=== PATIENT | male | born 1970 | race American Indian/Alaskan Native ===

== ENCOUNTER 2019-05-10 22:13 | Emergency (ER) | payer OTHER ==
--- NOTE | 2019-05-10 22:24 | Event Note ---
ED Screening Note Date of service: 05/10/19 Time: 22:20 ED Screening Note: This is a 49 y.o. M. that presents to the ER with sore throat for 2 days. Reports discomfort with swallowing. This initial assessment/diagnostic orders/clinical plan/treatment(s) is/are subject to change based on patients health status, clinical progression and re- assessment by fellow clinical providers in the ED. Further treatment and workup at subsequent clinical providers discretion. Patient/guardian urged not to elope from the ED as their condition may be serious if not clinically assessed and managed. Initial orders include: Rapid strep
--- NOTE | 2019-05-11 00:10 | Emergency Department Report ---
ED ENT HPI - General Chief complaint: Sore Throat Stated complaint: SORE THROAT Time Seen by Provider: 05/10/19 22:19 Source: patient Mode of arrival: Ambulatory Limitations: No Limitations - History of Present Illness Initial comments: Patient is a 49-year-old male who presents to the emergency room with complaints of a sore throat that began 2 weeks ago. He states it hurts to swallow. He denies any fever. He denies any sick contacts. He is tolerating his secretions without difficulty. 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 He denies any allergies to medications. He is a nonsmoker, occasional drinker, denies drug use. - Related Data Previous Rx's Medication Instructions Recorded Last Taken Type Famotidine [Pepcid] 20 mg PO BID #60 tablet 05/11/19 Unknown Rx Nystas/Diphen/Xyl Visc/Mylanta 15 ml MM QID #1 udc 05/11/19 Unknown Rx [Magic Mouthwash] Nystas/Diphen/Xyl Visc/Mylanta 15 ml MM QID #480 ml 05/11/19 Unknown Rx [Magic Mouthwash] Allergies Allergy/AdvReac Type Severity Reaction Status Date / Time shellfish derived Allergy Anaphylaxis Verified 09/22/16 14:04 ED Dental HPI - General Chief complaint: Sore Throat Stated complaint: SORE THROAT Time Seen by Provider: 05/10/19 22:19 Source: patient Mode of arrival: Ambulatory Limitations: No Limitations - Related Data Previous Rx's Medication Instructions Recorded Last Taken Type Famotidine [Pepcid] 20 mg PO BID #60 tablet 05/11/19 Unknown Rx Nystas/Diphen/Xyl Visc/Mylanta 15 ml MM QID #1 udc 05/11/19 Unknown Rx [Magic Mouthwash] Nystas/Diphen/Xyl Visc/Mylanta 15 ml MM QID #480 ml 05/11/19 Unknown Rx [Magic Mouthwash] Allergies Allergy/AdvReac Type Severity Reaction Status Date / Time shellfish derived Allergy Anaphylaxis Verified 09/22/16 14:04 ED Review of Systems ROS: Stated complaint: SORE THROAT Other details as noted in HPI Comment: All other systems reviewed and negative ED Past Medical Hx - Past Medical History Previous Medical History?: Yes Hx GERD: Yes Hx of Cancer: Yes (Tumor in nose) Additional medical history: Brain tumor in 2012 - Surgical History Past Surgical History?: Yes Additional Surgical History: Tumor removal 2011 - Social History Smoking Status: Never Smoker Substance Use Type: None - Medications Home Medications: Home Medications Medication Instructions Recorded Confirmed Last Taken Type Famotidine [Pepcid] 20 mg PO BID #60 tablet 05/11/19 Unknown Rx Nystas/Diphen/Xyl Visc/Mylanta 15 ml MM QID #1 udc 05/11/19 Unknown Rx [Magic Mouthwash] Nystas/Diphen/Xyl Visc/Mylanta 15 ml MM QID #480 ml 05/11/19 Unknown Rx [Magic Mouthwash] ED Physical Exam - General Limitations: No Limitations General appearance: alert, in no apparent distress - Head Head exam: Present: atraumatic, normocephalic - Eye Eye exam: Present: normal appearance, PERRL - ENT ENT exam: Present: other (posterior oropharynx with green fixated mucus and sm all white plaques, no tonsillar hypertrophy, no tonsillar exudates, uvula is midline, no uvular edema) - Respiratory Respiratory exam: Present: normal lung sounds bilaterally. Absent: respiratory distress, wheezes, rales, rhonchi, stridor, chest wall tenderness, accessory muscle use, decreased breath sounds, prolonged expiratory - Cardiovascular Cardiovascular Exam: Present: regular rate, normal rhythm, normal heart sounds. Absent: systolic murmur, diastolic murmur, rubs, gallop - Neurological Exam Neurological exam: Present: alert, oriented X3 - Psychiatric Psychiatric exam: Present: normal affect, normal mood - Skin Skin exam: Present: warm, dry, intact ED Course Vital Signs 05/10/19 05/11/19 22:18 00:33 Temperature 97.9 F 98.7 F Pulse Rate 69 57 L Respiratory 18 16 Rate Blood Pressure 123/72 Blood Pressure 118/78 [Left] O2 Sat by Pulse 92 100 Oximetry ED Medical Decision Making - Lab Data Lab Results 05/10/19 Range/Units Unknown Group A Strep Rapid Negative (Negative) Vital Signs 05/10/19 05/11/19 22:18 00:33 Temperature 97.9 F 98.7 F Pulse Rate 69 57 L Respiratory 18 16 Rate Blood Pressure 123/72 Blood Pressure 118/78 [Left] O2 Sat by Pulse 92 100 Oximetry - Medical Decision Making Patient is a 49-year-old male who presents to the emergency room with complaints of a sore throat that began 2 weeks ago. He states it hurts to swallow. He denies any fever. He denies any sick contacts. He is tolerating his secretions without difficulty. 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 He denies any allergies to medications. He is a nonsmoker, occasional drinker, denies drug use. on exam: posterior oropharynx with green fixated mucus and small white plaques, no tonsillar hypertrophy, no tonsillar exudates, uvula is midline, no uvular edema. rapid strep is negative. vitals are normal. pt is afebrile. will give pt magic mouthwash, advised to swish and spit. pt also requesting something for his acid reflux. will give pt pepcid. discussed with pt the importance of following up with a PCP in the next 2-3 days due to these new findings in his oropharynx and his history of nasal CA. discussed with pt could be fungal or could be related to his prior cancer diagnosis and stressed the importance of follow up. pt agreeable with plan. return to the emergency room for any new or worsening symptoms. - Differential Diagnosis strep throat, pharyngitis, oral candidiasis, cancer Critical care attestation.: If time is entered above; I have spent that time in minutes in the direct care of this critically ill patient, excluding procedure time. ED Disposition Clinical Impression: Pain in throat Disposition: DC-01 TO HOME OR SELFCARE Is pt being admited?: No Does the pt Need Aspirin: No Condition: Stable Instructions: Pharyngitis (ED) Additional Instructions: please take medication as prescribed. it is very important you follow up with a primary care doctor in the next 3 days, the findings in your throat could be related to your acid reflux, a fungal infection, or could be related to your previous cancer diagnosis. return to the emergency room for any new or worsening symptoms. Prescriptions: Nystas/Diphen/Xyl Visc/Mylanta [Magic Mouthwash] 15 ml MM QID #1 udc Nystas/Diphen/Xyl Visc/Mylanta [Magic Mouthwash] 15 ml MM QID #480 ml Famotidine [Pepcid] 20 mg PO BID #60 tablet Referrals: CHARLES GARCIA MD [Primary Care Provider] - 2-3 Days [facility] [Outside] - 2-3 Days [facility] [Outside] - 2-3 Days Time of Disposition: 00:11 Print Language: MARSHALLESE
[2019-05-11 00:34] VITALS: BP 118/78
== END 2019-05-11 00:33 | disposition home or self-care (01) ==
LOC: ED 05-11 00:03
DX: R07.0 Pain in throat (principal); K21.9 Gastro-esophageal reflux disease without esophagitis; Z91.013 Allergy to seafood
CPT/HCPCS: 87116; 87430; 99283

== ENCOUNTER 2020-02-27 23:33 | Emergency (ER) | payer SELFPAY ==
[2020-02-27] MEDS ORDERED: SODIUM CHLORIDE 0.9% 1000 ML 1,000 ML IV ONE (23:53)
[2020-02-27] MEDS ORDERED: LIDOCAINE VISCOUS 2% 15 ML ORAL LIQD PO ONE (23:55)
[2020-02-27] MEDS ORDERED: ALUM-MAG HYDROXIDE-SIMETHICONE 200-200-20MG/5ML ORAL LIQD 30 ML PO ONE (23:55)
[2020-02-28 00:11] LABS: Bacteria,Urine 1+ /HPF (Negative); Bilirubin,Urine NEG (Negative); Blood,Urine NEG (Negative); Color,Urine Straw (Yellow); Protein,Urine <15 mg/dL mg/dL (Negative); Urobilinogen,Urine < 2.0 mg/dL (<2.0); WBC,Urine < 1.0 /HPF (0.0-6.0)
--- NOTE | 2020-02-28 00:50 | XRay Report ---
CHEST 2 VIEWS INDICATION / CLINICAL INFORMATION: Chest Pain. COMPARISON: None available. FINDINGS: SUPPORT DEVICES: None. HEART / MEDIASTINUM: No significant abnormality. LUNGS / PLEURA: No significant pulmonary or pleural abnormality. No pneumothorax. ADDITIONAL FINDINGS: No significant additional findings. IMPRESSION: 1. No acute findings. No change. Signer Name: Heidi Neville MD Signed: 02/28/2020 12:46 AM Workstation Name: [id number]
--- NOTE | 2020-02-28 00:59 | Emergency Department Report ---
ED Dizziness HPI - General Chief Complaint: Dizziness Stated Complaint: LIGHTHEADED Time Seen by Provider: 02/27/20 23:52 Source: patient Mode of arrival: Ambulatory Limitations: No Limitations - History of Present Illness Initial Comments: Ms. Cid is a 50-year-old -[place] male with a history of GERD, brain tumor in 2011, Who presents for dizziness intermittent for 2 days. There is no fever or chills. There is no nausea vomiting. Patient is alert oriented x3 patient is ambulatory with steady gait with no acute distress. He denies cough or shortness of breath. Symptoms are exacerbated by nothing. Symptoms are relieved by nothing tried., Patient states he stopped taking his GERD medicine. Denies any falls injuries or trauma. There is no decrease or loss of vision. There is no headache. There is no chest pain. MD Complaint: dizziness Onset/Timin -: days(s) Timing: gradual onset Description: sense of movement History of Same: Yes History of Trauma: No Severity: mild Improves With: nothing Worsens With: nothing Associated Symptoms: denies: ataxia, chest pain, confusion, cough, diaphoresis, fever/chills, malaise, shortness of breath, weakness - Related Data Previous Rx's Medication Instructions Recorded Last Taken Type Famotidine [Pepcid] 20 mg PO BID #60 tablet 05/11/19 Unknown Rx Nystas/Diphen/Xyl Visc/Mylanta 15 ml MM QID #1 udc 05/11/19 Unknown Rx [Magic Mouthwash] Nystas/Diphen/Xyl Visc/Mylanta 15 ml MM QID #480 ml 05/11/19 Unknown Rx [Magic Mouthwash] diphenhydrAMINE [Benadryl CAP] 25 mg PO Q8HR PRN #30 capsule 02/28/20 Unknown Rx Allergies Allergy/AdvReac Type Severity Reaction Status Date / Time shellfish derived Allergy Anaphylaxis Verified 09/22/16 14:04 ED Review of Systems ROS: Stated complaint: LIGHTHEADED Other details as noted in HPI Constitutional: denies: chills, fever Eyes: denies: eye pain, eye discharge, vision change ENT: denies: ear pain, throat pain Respiratory: denies: cough, shortness of breath, wheezing Cardiovascular: denies: chest pain, palpitations Endocrine: no symptoms reported Gastrointestinal: denies: abdominal pain, nausea, vomiting, diarrhea Genitourinary: denies: urgency, dysuria Musculoskeletal: denies: back pain, joint swelling, arthralgia Skin: denies: rash, lesions Neurological: other (dizziness ). denies: headache, weakness, numbness, paresthesias, confusion Psychiatric: denies: anxiety, depression Hematological/Lymphatic: denies: easy bleeding, easy bruising ED Past Medical Hx - Past Medical History Previous Medical History?: Yes Hx GERD: Yes Additional medical history: Brain tumor in 2011 - Surgical History Past Surgical History?: Yes Additional Surgical History: Tumor removal 2011 - Social History Smoking Status: Never Smoker Substance Use Type: Alcohol - Medications Home Medications: Home Medications Medication Instructions Recorded Confirmed Last Taken Type Famotidine [Pepcid] 20 mg PO BID #60 tablet 05/11/19 Unknown Rx Nystas/Diphen/Xyl Visc/Mylanta 15 ml MM QID #1 udc 05/11/19 Unknown Rx [Magic Mouthwash] Nystas/Diphen/Xyl Visc/Mylanta 15 ml MM QID #480 ml 05/11/19 Unknown Rx [Magic Mouthwash] diphenhydrAMINE [Benadryl CAP] 25 mg PO Q8HR PRN #30 capsule 02/28/20 Unknown Rx ED Physical Exam - General Limitations: No Limitations General appearance: alert, in no apparent distress - Head Head exam: Present: atraumatic, normocephalic - Eye Eye exam: Present: normal appearance, PERRL, EOMI Pupils: Present: normal accommodation - ENT ENT exam: Present: normal orophraynx, mucous membranes moist, TM's normal bilaterally, normal external ear exam - Neck Neck exam: Present: normal inspection, full ROM. Absent: tenderness, lymphadenopathy, thyromegaly - Respiratory Respiratory exam: Present: normal lung sounds bilaterally. Absent: respiratory distress, wheezes, stridor, chest wall tenderness - Cardiovascular Cardiovascular Exam: Present: regular rate, normal rhythm, normal heart sounds. Absent: systolic murmur, diastolic murmur, rubs, gallop - GI/Abdominal GI/Abdominal exam: Present: soft, normal bowel sounds. Absent: distended, tenderness, guarding, rebound, rigid, bruit, hernia - Rectal Rectal exam: Present: deferred - Extremities Exam Extremities exam: Present: normal inspection, full ROM, normal capillary refill. Absent: tenderness - Back Exam Back exam: Present: normal inspection, full ROM. Absent: tenderness, paraspinal tenderness, vertebral tenderness - Neurological Exam Neurological exam: Present: alert, oriented X3, CN II-XII intact, normal gait, reflexes normal. Absent: motor sensory deficit - Expanded Neurological Exam Expanded Patient oriented to: Present: person, place, time Speech: Present: fluid speech Motor strength exam: RUE: 5, LUE: 5, RLE: 5, LLE: 5 Best Eye Response (Gisselle): (4) open spontaneously Best Motor Response (Mclean): (6) obeys commands Best Verbal Response (Mclean): (5) oriented Mclean Total: 15 - Psychiatric Psychiatric exam: Present: normal affect, normal mood - Skin Skin exam: Present: warm, dry, intact, normal color. Absent: rash ED Course Vital Signs 02/27/20 02/28/20 23:42 03:00 Temperature 98.0 F 97.7 F Pulse Rate 62 63 Respiratory 18 16 Rate Blood Pressure 123/83 Blood Pressure 125/68 [Left] O2 Sat by Pulse 100 97 Oximetry ED Medical Decision Making - Lab Data Result diagrams: 02/28/20 00:50 02/28/20 00:50 Labs 02/27/20 02/28/20 02/28/20 23:50 00:50 00:50 WBC 4.0 L RBC 4.63 Hgb 13.5 Hct 40.6 MCV 88 MCH 29 MCHC 33 RDW 12.9 L Plt Count 177 PT INR APTT Sodium 138 Potassium 3.9 Chloride 99.1 Carbon Dioxide 29 Anion Gap 14 BUN 11 Creatinine 1.1 Estimated GFR > 60 BUN/Creatinine Ratio 10 Glucose 87 Calcium 9.3 Total Bilirubin 0.30 AST 27 ALT 10 Alkaline Phosphatase 70 Troponin T < 0.010 Total Protein 7.2 Albumin 4.1 Albumin/Globulin Ratio 1.3 Lipase Urine Color Straw Urine Turbidity Clear Urine pH 7.0 Ur Specific [place] 1.006 Urine Protein <15 mg/dl Urine Glucose (UA) Neg Urine Ketones Neg Urine Blood Neg Urine Nitrite Neg Urine Bilirubin Neg Urine Urobilinogen < 2.0 Ur Leukocyte Esterase Neg Urine WBC (Auto) < 1.0 Urine RBC (Auto) 2.0 U Epithel Cells (Auto) < 1.0 Urine Bacteria (Auto) 1+ 02/28/20 02/28/20 00:50 00:50 WBC RBC Hgb Hct MCV MCH MCHC RDW Plt Count PT 13.4 INR 1.01 APTT 27.2 Sodium Potassium Chloride Carbon Dioxide Anion Gap BUN Creatinine Estimated GFR BUN/Creatinine Ratio Glucose Calcium Total Bilirubin AST ALT Alkaline Phosphatase Troponin T Total Protein Albumin Albumin/Globulin Ratio Lipase 15 Urine Color Urine Turbidity Urine pH Ur Specific [place] Urine Protein Urine Glucose (UA) Urine Ketones Urine Blood Urine Nitrite Urine Bilirubin Urine Urobilinogen Ur Leukocyte Esterase Urine WBC (Auto) Urine RBC (Auto) U Epithel Cells (Auto) Urine Bacteria (Auto) - EKG Data EKG shows normal: sinus rhythm, axis, intervals Rate: bradycardia (58 beats per minute ) - EKG Data When compared to previous EKG there are: no significant change Interpretation: no acute changes, nonspecific ST-T wave abran, LVH - Radiology Data Radiology results: report reviewed, image reviewed Findings Reporting MD: Heidi Neville Dictation Time: February 27, 2020 23:46 Sample Carrier: Not available Financial Analyst Date: CHEST 2 VIEWS INDICATION / CLINICAL INFORMATION: Chest Pain. COMPARISON: None available. FINDINGS: SUPPORT DEVICES: None. HEART / MEDIASTINUM: No significant abnormality. LUNGS / PLEURA: No significant pulmonary or pleural abnormality. No pneumothorax. ADDITIONAL FINDINGS: No significant additional findings. IMPRESSION: 1. No acute findings. No change. Signer Name: Heidi Neville MD Signed: 02/27/2020 11:46 PM Workstation Name: [id number] - Medical Decision Making Symptoms improved with medications given in ED. CP ris resolved, Heart score: 0, trop <0.010 Patient is currently alert and oriented x3 amatory with steady gait with no acute distress at this time denies dizziness. EKG noted and interpreted by ED attending for sinus bradycardia no ST elevated WI, cxr normal no infiltrates no opacities, plan: follow up with pcp in 2-3 dyas return to ed if symptoms worsen. Critical care attestation.: If time is entered above; I have spent that time in minutes in the direct care of this critically ill patient, excluding procedure time. ED Disposition Clinical Impression: Dizziness Disposition: DC-01 TO HOME OR SELFCARE Is pt being admited?: No Does the pt Need Aspirin: No Condition: Stable Instructions: Dizziness (ED) Prescriptions: diphenhydrAMINE [Benadryl CAP] 25 mg PO Q8HR PRN #30 capsule PRN Reason: dizziness Referrals: ALIZE LUNA MD [Staff Physician] - 3-5 Days Forms: Work/School Release Form(ED) Time of Disposition: 03:25
[2020-02-28 01:09] LABS: Hematocrit 40.6 % (35.5-45.6); Hemoglobin 13.5 gm/dl (11.8-15.2); Mean Corpuscular HGB Conc 33 % (32-34); Mean Corpuscular Volume 88 fl (84-94); Platelet Count 177 K/mm3 (140-440); Red Blood Count 4.63 M/mm3 (3.65-5.03); Red Cell Distribution Width 12.9 % (13.2-15.2)
[2020-02-28 01:24] LABS: Alanine Aminotransferase 10 units/L (7-56); Albumin 4.1 g/dL (3.9-5); BUN/Creatinine Ratio 10; Blood Urea Nitrogen 11 mg/dL (9-20); Calcium 9.3 mg/dL (8.4-10.2); Hemolysis Index 11
[2020-02-28 01:33] LABS: INR 1.01 (0.87-1.13); Partial Thromboplastin Time 27.2 Sec. (24.2-36.6)
[2020-02-28 03:09] VITALS: BP 125/68
[2020-02-28 03:56] LABS: Anisocytosis 1+; Basophils % (Manual) 0 % (0.0-1.8); Platelet Estimate Consistent w Auto; Total Cells Counted 100
== END 2020-02-28 03:30 | disposition home or self-care (01) ==
LOC: ED 23:33
DX: R42 Dizziness and giddiness (principal); K21.9 Gastro-esophageal reflux disease without esophagitis; Z91.013 Allergy to seafood; Z98.890 Other specified postprocedural states; Z79.899 Other long term (current) drug therapy
CPT/HCPCS: 36415; 71046; 80053; 81001; 83690; 84484; 85007; 85025; 85610; 85730; 93005; 96360; 99284; J7030